=== PATIENT | female | born 1955 | race Hispanic/Latino ===

== ENCOUNTER → 2018-07-24 | Day surgery (SDC) | payer OTHER ==
[2018-07-23 15:27] VITALS: BMI 28.3
[~2018-07-24] MED LIST: Lidocaine 1% PF 5 ML VIAL ONE; PROPOFOL 200 MG/20 ML VIAL ONE
--- NOTE | 2018-07-24 04:05 | HP ---
SHORT STAY HISTORY AND PHYSICAL DATE OF ADMISSION: 07/24/2018 HISTORY OF PRESENT ILLNESS: This is a 63-year-old female who comes for a colonoscopy for colon cance r screening. The patient has no specific GI symptoms. The patient has a history of constipation off and on. There is no rectal bleeding. She does complain of feeling pressure-like feeling in the rec mechelle. ALLERGIES: None. MEDICAL ILLNESSES: 1. Diabetes mellitus. 2. Hyperlipidemia. 3. Hypothyroidism. 4. Colon polyp. SURGERIES 1. . 2. Oophorectomy. 3. Abdominoplasty. PHYSICAL EXAMINATION: VITAL SIGNS: Pulse is 70, blood pressure 130/80. HEENT: Conjunctivae clear. CARDIOVASCULAR SYSTEM: First and second heart sounds normal. LUNGS: Clear to auscultation. ABDOMEN: Soft. No organomegaly. No tenderness. No masses. EXTREMITIES: Reveal no edema. ADMITTING DIAGNOSIS: A 63-year-old female with history of colon polyp, comes in for a colonoscopy.
--- NOTE | 2018-07-25 14:14 | OP ---
DATE OF PROCEDURE: 07/24/2018 SURGEON: Rick Yoo M.D. OPERATIVE PROCEDURE: Colonoscopy with polypectomy: PREOPERATIVE DIAGNOSIS: A 63-year-old female with history of colon polyps and previo us polypectomy. She comes for a colonoscopy. POSTOPERATIVE DIAGNOSES: 1. Sessile polyp descending colon, status post snare cautery with good hemostasis. 2. Broad based sessile polyp, hepatic flexure on the transverse colon side. Status post polypectomy with good hemostasis. 3. Large hemorrhoids. 4. Previous polypectomy site in the descending colon which was tattooed in the past was seen and the polypectomy site does not show any residual polyp. PROCEDURE IN DETAIL: The patient was placed on her left lateral position and was given sedation by [facility] nest[facility]. A rectal exam was done before the scope was advanced into the rectum. No lesi ons were felt on rectal exam. A Pentax video colonoscope was introduced into the rectum and advanced all the way into the cecum. The prep was good. The appendical opening, ileocecal valve, cecum, no pathology seen. Withdrawal from the cecum, the ascending colon, no pathology seen. The patient had a broad-based sessile polyp close to the hepatic flexure on the transverse colon side. This was tushar antonino with snare cautery with good hemostasis. The remainder the transverse colon, splenic flexure, no pathology seen. The patient apparently has had a previous polypectomy and the polyp site seen over the left colon. The polypectomy site was tattooed from before and the polyp site does not show any r esidual polyp. The sessile descending colon polyp removed with snare cautery with good hemostasis. The sigmoid colon, no pathology seen. Retroflexion of scope in the rectum showed hemorrhoids. DISCHARGE PLANNING: This is a 63-year-old female who came in for a colonoscopy. She underwent polypectomy x2. DISCHARGE RECOMMENDATIONS: 1. The patient was advised to call me if she develops abdominal pain, hematochezia or fever. 2. In the absence of any of the above symptoms, she is to come back to me in 2 weeks.
== END ==
LOC: SDC 08:44
PROVIDERS: ATTEND Internal Medicine Gastroenterology
PROC: 0DBM8ZZ Excision of Descending Colon, Via Natural or Artificial Opening Endoscopic (ICD-10-PCS; principal; 2018-07-24)
PROC: 0DBL8ZZ Excision of Transverse Colon, Via Natural or Artificial Opening Endoscopic (ICD-10-PCS; principal; 2018-07-24)
DX: Z12.11 Encounter for screening for malignant neoplasm of colon (principal); D12.4 Benign neoplasm of descending colon; D12.3 Benign neoplasm of transverse colon; E78.5 Hyperlipidemia, unspecified; E11.9 Type 2 diabetes mellitus without complications; E03.9 Hypothyroidism, unspecified; Z79.84 Long term (current) use of oral hypoglycemic drugs; Z79.899 Other long term (current) drug therapy
CPT/HCPCS: 88305; J2001; J2704

== ENCOUNTER 2018-07-30 14:05 | Outpatient (CLI) | payer OTHER ==
--- NOTE | 2018-07-30 18:33 | BD ---
DEXA BONE DENSITOMETRY: (Dual energy X-ray Absorptiometry) Date: 07/30/18 HISTORY: 63-year-old female for postmenopausal, age-related osteoporosis screening examination. Height: 65 Weight: 170 lbs Age of menopause: 49 years COMPARISON: None available. FINDINGS: The bone mineral density (BMD) is given in grams per square centimeter (g/cm2): LUMBAR SPINE: BMD(g/cm2) T-score Z-score L1: 0.922 -0.6 0.8 L2: 0.955 -0.3 1.2 L3: 0.987 -0.9 0.7 L4: 0.917 -1.3 0.4 Total: 0.955 -0.8 0.7 HIP: Femoral neck: 0.737 -1.0 0.2 Total: 0.936 -0.1 0.8 IMPRESSION: 1. The mean bone mineral density of the lumbar spine is normal. Fracture risk is not increased. 2. The bone mineral density of the femoral neck is normal. Fracture risk is not increased. KITA Johnson POS: JOSE
== END 2018-07-30 14:06 | disposition home or self-care (01) ==
LOC: BICMAMMO 14:05
PROVIDERS: ATTEND Obstetrics & Gynecology
DX: Z12.31 Encounter for screening mammogram for malignant neoplasm of breast (principal); Z13.820 Encounter for screening for osteoporosis; Z80.3 Family history of malignant neoplasm of breast
CPT/HCPCS: 77063; 77067; 77080